=== PATIENT | female | born 1980 | race African-American/Black ===

== ENCOUNTER → 2017-12-06 | Outpatient (CLI) | payer OTHER | LOC: MRI 10:37 | DX: D05.12 Intraductal carcinoma in situ of left breast (principal); N60.01 Solitary cyst of right breast; N60.02 Solitary cyst of left breast ==

== ENCOUNTER 2018-01-08 05:36 | Day surgery (SDC) | payer OTHER ==
[~2018-01-08] VITALS: Ht 162.6 cm; Wt 50.8 kg
--- NOTE | ~2018-01-08 | O ---
[facility] [place] [address] OPERATIVE REPORT Name: MALINI WYATT Room #: 150-6 [facility]#: [id number] Admission: 01/08/18 Attend Phys: Kamlesh Lawrence MD Discharge: Date of : 82 Report #: [id number] THIS REPORT FOR: //name// CC: Lauro Lawrence DATE OF SERVICE: 01/08/[address] Kamlesh Lawrence and Dr. Lauro Hadley. PREOPERATIVE DIAGNOSIS: Ductal carcinoma in situ of the left breast. POSTOPERATIVE DIAGNOSIS: Ductal carcinoma in situ of the left breast. PROCEDURE: Left breast lumpectomy with preoperative needle localization. SURGEON: Kamlesh Lawrence MD ANESTHESIA: Local IV sedation. DESCRIPTION OF PROCEDURE: The patient underwent left breast preoperative needle localization under mammographic guidance in the Radiology Department and was then brought to the operating room and placed on operative table in the supine position. Sequential compression devices were in place for DVT prophylaxis. She received an appropriate preoperative dose of Ancef. The patient underwent IV sedation. The left breast was then prepped and draped in a sterile fashion. Skin and subcutaneous tissue around the needle and wire was then infiltrated with 1% Xylocaine with epinephrine and 0.5% Marcaine plain. A radial skin incision was performed around the needle and wire using a #15 scalpel blade. Hemostasis obtained using electrocautery. Dissection was carried down through subcutaneous tissue and around the needle and wire using the electrocautery and the Metzenbaum scissors. The area in question was completely excised and oriented for the pathologist with a double strand chromic suture being superior, single strand chromic suture being anterior superficial margin and the wire extending out laterally. The specimen was sent to Radiology who x-rayed the specimen confirmed the presence of the clip within the specimen. This was then given to the pathologist in the operating room for orientation and permanent study. Meticulous hemostasis was checked and obtained using the electrocautery and found to be intact. Deep and superficial subcutaneous tissue was then reapproximated using simple interrupted 2-0 chromic sutures and the skin then closed with a running 4-0 subcuticular Vicryl stitch. The wound was then dressed with Mastisol, 1/2-inch Steri-Strips cut in half, Telfa, 4 x 4 gauze, sponge and tape. The patient was then taken to the recovery room awake, alert and in good condition. Estimated blood loss was approximately 10 mL and the [facility] [address] [place] [address] OPERATIVE REPORT Name: MALINI WYATT Room #: 150-6 [facility]#: [id number] Admission: 01/08/18 Attend Phys: Kamlesh Lawrence MD Discharge: Date of : 82 Report #: [id number] patient tolerated the procedure well. All sponge, lap and instrument counts correct x 2. By: 1214 1225 Kamlesh Lawrence MD /shannan
[~2018-01-08 05:36] MED LIST: XANAX 0.25 MG0.25 MG PO
[2018-01-08 07:30] VITALS: BP 115/79
[2018-01-08] MEDS ORDERED: NORCO 5-325 TA1 EACH PO (12:18)
[2018-01-08 12:56] VITALS: BP 115/79
== END 2018-01-08 17:25 | disposition home or self-care (01) ==
LOC: OR 05:36 → TBA 05:36 → BC 09:49 → EDSTATUS 11:15 → OR 11:17
DX: D05.12 Intraductal carcinoma in situ of left breast (principal); F41.9 Anxiety disorder, unspecified; Z98.890 Other specified postprocedural states; Z79.891 Long term (current) use of opiate analgesic
CPT/HCPCS: 50010; 50101; 50386; 50417; 56524; 56528; 62110; 70005

== ENCOUNTER → 2018-04-29 | Outpatient (CLI) | payer OTHER ==
[~2018-04-29] MED LIST changes: +NORCO 5-325 TA1 EACH PO
== END ==
LOC: RAD 01:46
DX: R92.8 Other abnormal and inconclusive findings on diagnostic imaging of breast (principal); D05.12 Intraductal carcinoma in situ of left breast

== ENCOUNTER → 2018-06-10 | Outpatient (CLI) | payer OTHER | LOC: ULTRA 10:24 | DX: D25.9 Leiomyoma of uterus, unspecified (principal); D05.12 Intraductal carcinoma in situ of left breast; N83.202 Unspecified ovarian cyst, left side; N83.201 Unspecified ovarian cyst, right side ==

== ENCOUNTER 2018-06-27 08:04 | Emergency (ER) | payer OTHER ==
[~2018-06-27] VITALS: Ht 160 cm; Wt 53.5 kg
[2018-06-27 08:04] VITALS: BP 125/86
[2018-06-27] MEDS ORDERED: NOLVADEX20 MG PO (08:07)
[2018-06-27] MEDS ORDERED: VENTOLIN HFA 1818 GM INH (08:49)
[2018-06-27] MEDS ORDERED: TESSALON PERLE100 MG PO (08:49)
== END 2018-06-27 09:06 | disposition home or self-care (01) ==
LOC: ER 08:04
DX: R05 Cough (principal)

== ENCOUNTER → 2018-12-01 | Outpatient (CLI) | payer OTHER ==
[~2018-12-01] MED LIST changes: +NOLVADEX20 MG PO; +TESSALON PERLE100 MG PO; +VENTOLIN HFA 1818 GM INH
== END ==
LOC: BC 15:37
DX: Z12.31 Encounter for screening mammogram for malignant neoplasm of breast (principal)

== ENCOUNTER → 2019-02-13 | Outpatient (CLI) | payer OTHER | LOC: ULTRA 09:15 | DX: D05.12 Intraductal carcinoma in situ of left breast (principal) ==

== ENCOUNTER → 2019-07-30 | Outpatient (CLI) | payer OTHER | LOC: BC 10:52 | DX: Z12.31 Encounter for screening mammogram for malignant neoplasm of breast (principal) ==

== ENCOUNTER → 2020-02-02 | Outpatient (CLI) | payer OTHER | LOC: BC 01-29 13:46 | PROVIDERS: ATTEND Internal Medicine Hematology & Oncology | DX: D25.9 Leiomyoma of uterus, unspecified (principal); R92.8 Other abnormal and inconclusive findings on diagnostic imaging of breast; Z86.018 Personal history of other benign neoplasm ==

== ENCOUNTER → 2020-07-08 | Outpatient (CLI) | payer OTHER | LOC: MRI 11:35 | PROVIDERS: ATTEND Surgery | DX: N64.89 Other specified disorders of breast (principal); D05.12 Intraductal carcinoma in situ of left breast; Z98.890 Other specified postprocedural states ==

== ENCOUNTER → 2021-02-03 | Outpatient (CLI) | payer OTHER | LOC: ULTRA 09:20 | PROVIDERS: ATTEND Internal Medicine Hematology & Oncology | DX: D05.12 Intraductal carcinoma in situ of left breast (principal) ==

== ENCOUNTER → 2021-02-21 | Outpatient (CLI) | payer OTHER ==
--- NOTE | 2021-03-01 11:07 | PATH ---
[facility] [place] [address] [place] [address] PATHOLOGY RPT PROCEDURE Name: TOMEKA MYRICK Room #: REG [facility]..#: [id number] Admission: 02/21/21 Date of : 82 Discharge: Report #: [id number] Path Case #: [id number] [facility] Accession Number: [id number] . 01 Material submitted: . lymph node - RT AXILLARY NODE ENLARGED. Modifiers: right, axilla . 02 Diagnosis: Right axillary lymph node, needle core biopsies: - Scant fragment of lymphoid tissue with hemorrhage. - Negative for acute inflammation, granulomatous inflammation, or epithelial malignancy. Please see diagnostic comment. (ANK:pit; 02/23/2021) . . . Special studies report received from [facility], [address] [place] [address], [address], [place], [address], on case [id number], labeled with their number [id number], dated 02/24/2021. . Flow Cytometry: Hematologic Neoplasia Assessment . Clinical History Enlarged lymph nodes, unspecified . Indication For Study Evaluation for lymphadenopathy . Specimen Tissue, Right Axillary Node . Viability 67% (7AAD exclusion) . Interpretation Tissue, Right Axillary Node: - No significant lymphoid immunophenotypic abnormalities detected; in a limited study (see comment). . Comments A limited panel of markers was performed due to very low cell yield. There are no significant immunophenotypic abnormalities in this limited study. It is of note that non- hematolymphoid neoplasms, Hodgkin lymphoma, some T-cell lymphomas and some large cell lymphomas cannot be totally excluded based solely on flow cytometry analysis. Correlation with available clinical, laboratory, and morphologic data is recommended. . Populations Analyzed [address] [address] PATHOLOGY RPT PROCEDURE Name: TOMEKA MYRICK Room #: REG [facility].#: [id number] Admission: 02/21/21 Date of : 82 Discharge: Report #: [id number] Path Case #: [id number] Lymphocytes: 33% B-cells: 5.6%, polytypic/polyclonal sIg/cIg light chain pattern T-cells: no significant abnormalities of the markers tested CD4:CD8: 1.8 CD45 Negative 67% No significant reactivity with the markers tested Events/Debris: (may represent non-hematolymphoid cells, degenerated cells, debris, unlysed red blood cells, etc.) . Morphologic Evaluation A slide was reviewed for software quality assurance specialist purposes only. . Specimen Description Due to low cell count, the lab is unable to provide an accurate cell yield. A limited panel of antibodies was performed and less than 10,000 events were acquired. Flow cytometry data derived from an acquisition with less than 10,000 events needs to be interpreted within the context of all clinical, laboratory, and morphologic information. . Reagent(s) Used CD3, CD4, CD5, CD8, CD10, CD19, CD20, CD38, CD45, CD57, kappa, lambda, CytoKappa, CytoLambda . at [facility] [employer]. Julissa Ramirez MD Pathologist . Intended Use Flow cytometry is optimally used to immunophenotypically characterize abnormal populations when they are detected. Negative flow cytometry results do not exclude lymphoma or neoplasia. Possible false negative flow cytometry results may occur in, but are not limited to, the following: neoplastic cells in Hodgkin lymphoma are not typically adequately represented by routine clinical flow cytometry; neoplastic cells may be lost or inadequately represented due to degeneration, sample processing, sampling artifact, or patchy involvement; plasma cells are typically underrepresented by flow cytometry; immature cells/blasts may be underrepresented due to hemodilution; myeloproliferative disorders and low grade myelodysplasia may not have immunophenotypic abnormalities or increased blasts. Correlation with all available clinical, laboratory, and morphologic data is always necessary to assess for the possibility of false negative flow cytometry results and to establish a diagnosis. Each marker in this analysis was used to assess for potential antigenic abnormalities or to evaluate detected abnormalities. . Any image or images that accompany this report are sales representative printing supplies images only and should not be used to render a diagnosis. [address] [address] PATHOLOGY RPT PROCEDURE Name: TOMEKA MYRICK Room #: REG [facility]#: [id number] Admission: 02/21/21 Date of : 82 Discharge: Report #: [id number] Path Case #: [id number] . Disclaimer(s) This test was developed and its performance characteristics determined by [facility] [employer]. It has not been cleared or approved by the Food and Drug Administration. . Performing Labs [facility] is a business unit of [facility] a wholly-owned subsidiary of [employer]. . This test was performed at [facility]. at [address], [place], [address] - Assistance Specialist: Sean Dent MD. . For inquiries, the physician may contact Lab: [phone] . A complete copy of the report is on file. . Professional services performed by [facility] at [address], [place] [address]. Technical services performed by [facility] at [address], [place] [address]. . (ANK:babak 02/27/2021) . [facility] 02/27/2021 1033 Local . 02 Comment: The tissue is extremely scant and a lymphoid tissue architecture is not readily identified. Flow cytometry studies are as above. This case has been co-reviewed with Dr. Oscar Portillo who agrees with the diagnosis on 02/23/2021. (ANK:beena; 02/23/2021) . 02 Electronically signed: . Eryn Dyer MD, Pathologist NPI- [id number] . 01 Gross description: . The specimen is received in formalin, labeled "Myrick, Crystal, right axilla". Received are multiple, minute pale carrera needle core fragments measuring 1.0 x 0.1 x 0.1 cm in aggregate dimensions. The specimen is filtered and entirely submitted in cassette A1. . Also received in an RPMI tube labeled "Tomeka Myrick, right axilla," are multiple pale carrera needle core fragments. The specimen is forwarded to [facility] [address] [place] [address] PATHOLOGY RPT PROCEDURE Name: TOMEKA MYRICK S Room #: REG [facility] M.R.#: [id number] Admission: 02/21/21 Date of : 82 Discharge: Report #: [id number] Path Case #: [id number] send-outs for further processing. ([facility]; 02/21/2021) NRI/NRI 02/21/2021 2202 Local . 02 Pathologist provided ICD-10: R59.1 . 02 CPT . 796902 Specimen Comment: A courtesy copy of this report has been sent to [phone] Specimen Comment: [phone], Specimen Comment: Report sent to , DR MONTGOMERY / DR MENON Specimen Comment: A duplicate report has been generated due to demographic updates. Performed at: 01 [facility] [address], [place], [place] [id number] MD Kevyn Moore MD Phone: [phone] Performed at: 02 [facility] [place] [address] [place], [place] [id number] MD Eryn Dyer MD Phone: [phone]
== END | disposition home or self-care (01) ==
LOC: ULTRA 10:51
PROVIDERS: ATTEND Surgery
DX: R59.1 Generalized enlarged lymph nodes (principal); Z79.899 Other long term (current) drug therapy